=== PATIENT | female | born 1995 | race African-American/Black ===

== ENCOUNTER 2017-12-14 12:17 | Emergency (ER) | payer OTHER ==
[~2017-12-14] VITALS: Ht 167.6 cm; Wt 90.7 kg
[~2017-12-14 12:17] MED LIST: CLOTRIMAZOLE AF30 GM TP; DIFLUCAN200 MG PO; MOBIC7.5 MG PO; NOHOMEMEDICATIONS; PROBIOTIC1 EAC1 PO
[2017-12-14 13:01] LABS: HEMATOCRIT 36.9 % (37.0-47.0); HEMOGLOBIN 12.8 gm/dL (12.0-15.0); MCH 27.6 pg (26.0-34.0); MCHC 34.6 g/dL (28.0-37.0); MCV 79.7 fL (80.0-100.0); PLATELET COUNT 302 thou/uL (150-400); RBC 4.63 mil/uL (4.20-5.00); RDW 15.5 % (10.5-14.5); WBC 8.2 thou/uL (4.0-11.0)
[2017-12-14 13:02] LABS: URINE BILIRUBIN NEGATIVE (Negative); URINE BLOOD NEGATIVE (Negative); URINE CLARITY CLEAR; URINE COLOR YELLOW; URINE GLUCOSE-RANDOM* NEGATIVE (Negative); URINE KETONES NEGATIVE (Negative); URINE LEUKOCYTES NEGATIVE (Negative); URINE NITRITE NEGATIVE (Negative); URINE PROTEIN (DIPSTICK) NEGATIVE (Negative); URINE SPECIFIC GRAVITY <= 1.005 (1.005-1.035); URINE UROBILINOGEN 0.2 E.U./dl (0.2-1.0)
[2017-12-14 13:12] LABS: CALCIUM 8.9 mg/dL (8.5-10.1); CREATININE 0.9 mg/dL (0.6-1.0); POTASSIUM 3.9 mmol/L (3.5-5.1)
[2017-12-14 13:49] LABS: ABSOLUTE NEUTROPHILS 4.8 thou/uL (1.4-8.2)
[2017-12-14] MEDS ORDERED: IBUPROFEN 800800 M1 PO (13:55)
== END 2017-12-14 14:15 | disposition home or self-care (01) ==
LOC: ER 12:17
PROVIDERS: Nurse Practitioner Family
DX: B34.9 Viral infection, unspecified (principal); F17.210 Nicotine dependence, cigarettes, uncomplicated; Z90.49 Acquired absence of other specified parts of digestive tract